=== PATIENT | male | born 1955 | race Caucasian/White ===

== ENCOUNTER → 2020-11-19 | Outpatient (CLI) | payer OTHER ==
[~2020-11-19] MED LIST: AMLODIPINE BES2.5 MG PO; ECOTRIN81 MG PO; K-DUR TAB 10 M10 MEQ PO; LASIX40 MG PO; LIPITOR TAB 2020 MG PO; LOPRESSOR50 MG PO; PLAVIX 75 MG TA75 MG PO; PRINIVIL20 MG PO; SYNTHROID100 MCG PO
== END ==
LOC: KOH-I 11:28
DX: M54.5 Low back pain (principal); M47.816 Spondylosis without myelopathy or radiculopathy, lumbar region; M51.36 Other intervertebral disc degeneration, lumbar region; I70.0 Atherosclerosis of aorta
CPT/HCPCS: 72110

== ENCOUNTER → 2020-11-26 | Outpatient (CLI) | payer OTHER | LOC: US 09:03 | DX: I70.0 Atherosclerosis of aorta (principal) | CPT/HCPCS: 93979 ==